=== PATIENT | male | born 1980 | race Caucasian/White ===

== ENCOUNTER 2022-05-04 14:47 | Emergency (ER) | payer BC, SELFPAY ==
[2022-05-04 15:15] VITALS: BP 169/95; PULSE 88; RESP 18; TEMP 36.6; O2SAT 97; BMI 34.0
--- NOTE | 2022-05-04 17:04 | ED_ITS ---
HPI - Abdominal Pain General Time Seen by Provider: 17:04 Date Seen: 05/04/22 Chief Complaint: Abdominal Pain Stated Complaint: Abdominal pain Time Seen by Provider: 05/04/22 17:03 Source: patient, RN notes reviewed and old records reviewed Mode of arrival: ambulatory Limitations: no limitations History of Present Illness HPI narrative: Patient is a very pleasant 41-year-old gentleman previously healthy who comes to the emergency room with concerns regarding hernia. Patient notes that his upper belly button area really hurts today and that he has noticed when he coughs this area bulges. One month ago he had this as well and it was associated with some diffuse abdominal pain that resolved. Today the patient has not noticed any bulging of his abdomen, difficulty with bowel movements or fever or vomiting. Related Data Allergies Allergy/AdvReac Type Severity Reaction Status Date / Time No Known Drug Allergies Allergy Verified 05/04/22 15:14 Review of Systems Narrative Patient denies nausea, vomiting, increasing abdominal distension, inability to pass gas blood in stool or fever. PFSH PFSH Social History Smoking Status: Former smoker Do you use any of these nicotine containing products: None Second hand tobacco smoke exposure: No How often do you have a drink containing alcohol: monthly or less How many standard drinks containing alcohol do you have on a typical day: 1 or 2 How often do you have six or more drinks on one occasion: Never AUDIT-C Alcohol total score: 1 Non-prescribed substance use: denies use service: No Exam Narrative: Exam Narrative: Patient is alert and oriented nontoxic in appearance. Heart with regular rate and rhythm lungs are clear. Patient has palpable abdominal wall defect at the very superior aspect of the umbilicus. Coughing does cause bulging of of the umbilicus in this area. However it is rather diffuse and mild. Bowel sounds are present. Are normal. No other abdominal pain. No rebound. Const: Vital Signs, click to edit/add: Vital Signs - 24 hr 05/04/22 15:15 05/04/22 17:55 Temperature 97.8 F Pulse Rate [Pulse Oximeter] 88 78 Respiratory Rate 18 16 Blood Pressure [Ri ght Upper Arm] 169/95 H 164/109 H Pulse Oximetry 97 99 Oxygen Delivery Me thod Room Air Room Air Course Course Hospital Course: Patient appears to have abdominal defect superior umbilicus area. Will get x- ray to ensure no evidence of obstructive pattern. Vital Signs Vital signs: Initial Vital Signs Temperature 97.8 F 05/04/22 15:15 Temperature Source Temporal Artery Scan 05/04/22 15:15 Pulse Rate 88 05/04/22 15:15 Pulse Rhythm 05/04/22 15:15 Respiratory Rate 18 05/04/22 15:15 Blood Pressure 169/95 H 05/04/22 15:15 Blood Pressure Mean 119 05/04/22 15:15 Blood Pressure Position Sitting 05/04/22 15:15 Pulse Oximetry 97 05/04/22 15:15 Oxygen Delivery Method 05/04/22 15:15 Vital Signs Temperature 97.8 F 05/04/22 15:15 Pulse Rate 88 05/04/22 15:15 Respiratory Rate 18 05/04/22 15:15 Blood Pressure 169/95 H 05/04/22 15:15 Pulse Oximetry 97 05/04/22 15:15 Oxygen Delivery Method 05/04/22 15:15 Temperature 97.8 F 05/04/22 15:15 Pulse Rate 78 05/04/22 17:55 Respiratory Rate 16 05/04/22 17:55 Blood Pressure 164/109 H 05/04/22 17:55 Pulse Oximetry 99 05/04/22 17:55 Oxygen Delivery Method 05/04/22 17:55 MDM - Abdominal Pain MDM Narrative Medical decision making narrative: 1. Umbilical hernia-not incarcerated and reducible 2. Disposition-patient does not appear to be toxic at this time has no evidence of an incarcerated hernia. First noticed this 1 month ago and this was associated with rather diffuse abdominal pain. Today the discomfort is localized. I have instructed him to follow-up with our surgeons and have given the number to the clinic. I have asked that he avoid any significant lifting or activity that increases abdominal pressure. I have spoken to him about the importance of reducing or pushing any hernia back in if it bulges out. He is to return to the emergency room for increasing pain, abdominal distension, vomiting, fever and as needed. Medical Records Attestation: I reviewed the patient's medical records. Imaging Data Abdominal x-ray: Attestation: I have reviewed the pertinent imaging results. My impression: No air-fluid levels or signs of obstruction Discharge Plan Discharge Clinical Impression: Hernia, umbilical Patient Disposition: Home, Self-Care Condition: Unchanged Additional Instructions: At this time you likely have a hernia. There does not appear to be any evidence of twisting or obstruction. However, you will want to get this looked at by a surgeon for repair. Please call [phone] for for an appointment with surgery. In the meantime please avoid lifting excessively heavy objects. Seek medical attention for hernia that does not reduce or pushed back into her abdomen, vomiting, increasing abdominal pain and inability to pass gas or fever. Follow Up/Referrals: Tristin Marquez PA-C [Primary Care Provider] - Stand Alone Forms: MyHealth Info Instructions
--- NOTE | 2022-05-04 17:13 | CRLHL7_ITS ---
For Patients: As a result of the Century Cures Act, medical imaging exams and procedure reports are released immediately into your electronic medical record. You may view this report before your referring provider. If you have questions, please contact your health care provider. In indication: Umbilical hernia Technique: Supine view abdomen was obtained. Comparison: None available. Findings: There is a non-obstructive, non-specific bowel gas pattern. There is a moderate amount of stool seen proximal colon. There is no pathologic calculus. There is no intraabdominal free air. The visualized osseus structures are grossly intact. Impression: Moderate stool seen throughout the colon. No evidence of pathologic calculus. Dictated by Braeden Galvez MD @ 05/04/2022 6:39:02 PM (Electronically Signed)
--- OUTSIDE RECORDS SUMMARY | 2022-05-04 17:46 | XMS_ITS | Encounter Summary ---
:1980 Author Organization [place] Address [address] [place] [address] Care Team Providers Name Role Phone Unavailable Primary Care Provider Unavailable Encounter Details Date Type Department Care Team Description 06/03/2021 Travel Social History Tobacco Use Types Packs/Day Years Used Date Smoking Tobacco: Former Smokeless Tobacco: Former Alcohol Use Standard Drinks/Week Comments Yes 0 (1 standard drink = 0.6 oz pure alcoho l) Sex Assigned at Date Recorded Not on file COVID-19 Exposure Response Date Recorded In the last month, have you been in contact with Yes 06/03/2021 10:58 AM JAMMER OPERATOR someone who was confirmed or suspected to have Coronavirus / COVID-19? documented as of this encounter Plan of Treatment Not on filedocumented as of this encounter Visit Diagnoses Not on filedocumented in this encounter Additional Health Concerns Infection Onset Date Last Indicated Resolved Time Rule Out COVID-19 06/03/2021 06/03/2021 06/04/2021 1:0 4 PM JAMMER OPERATOR documented as of this encounter
--- OUTSIDE RECORDS SUMMARY | 2022-05-04 17:46 | XMS_ITS | Clinical Summary ---
:1980 Author Organization [place] Address [address] [place] [address] Care Team Providers Name Role Phone Unavailable Primary Care Provider Unavailable Allergies No known active allergies Medications No known medications Social History Tobacco Use Types Packs/Day Years Used Date Smoking Tobacco: Former Smokeless Tobacco: Former Alcohol Use Standard Drinks/Week Comments Yes 0 (1 standard drink = 0.6 oz pure alcoho l) Sex Assigned at Date Recorded Not on file Last Filed Vital Signs Vital Sign Reading Time Taken Comments Blood Pressure 130/90 06/03/2021 12:16 PM LIVING COACH Pulse 95 06/03/2021 12:16 PM LIVING COACH Temperature 36.9 ??C (98.4 ??F) 06/03/2021 12:16 PM LIVING COACH Respiratory Rate 16 06/03/2021 12:16 PM LIVING COACH Oxygen Saturation 99% 06/03/2021 12:16 PM LIVING COACH Inhaled Oxygen Concentration - - Weight 102 kg (224 lb 14.4 oz) 06/03/2021 12:16 PM LIVING COACH Height - - Body Mass Index - - Plan of Treatment Health Maintenance Due Date Last Done Comments ADVANCE CARE PLANNING 1980 ANNUAL REVIEW OF HM ORDERS 1980 HEPATITIS B IMMUNIZATION (1 of 3 - 1980 3-dose series) YEARLY PREVENTIVE VISIT 1980 HIV SCREENING 12/18/1994 HEPATITIS C SCREENING 12/18/1997 LIPID 12/18/2014 DTAP/TDAP/TD IMMUNIZATION (2 - Td 06/21/2016 06/21/2006 or Tdap) COVID-19 Vaccine (2 - Booster for 12/16/2020 10/21/2020 Gail series) PHQ-2 (once per calendar year) 2021 INFLUENZA VACCINE (#1) 2022 IPV IMMUNIZATION Aged Out No longer eligi ble based on patient's age to complete this topic MENINGITIS IMMUNIZATION Aged Out No longe r eligible based on patient's age to complete this topic Pneumococcal Vaccine: Pediatrics Aged Out No longer eligible based on (0 to 5 Years) and At-Risk patie nt's age to complete Patients (6 to 64 Years) this to [facility] Insurance Payer Benefit Plan / Subscriber ID Effective Dates Phone Addre ss Type Group BCBS BCBS OF [place] [id number] 2016-Meka [phone] [address] [address] Indemnity t 0 [place] [address]
--- OUTSIDE RECORDS SUMMARY | 2022-05-04 17:46 | XMS_ITS | Encounter Summary ---
:1980 Author Organization [place] Address [facility] [place] [address] Care Team Providers Name Role Phone Unavailable Primary Care Provider Unavailable Reason for Visit Reason Comments Fever Encounter Details Date Type Department Care Team Description 06/03/2021 Office Visit [facility] Quynh Zuniga, Cough in adult (Primary Dx); Urgent Care Ana mccoy MD Exposure to 2019 novel coronavirus [id number] [address] [place], [place] [id number] [phone] Social History Tobacco Use Types Packs/Day Years Used Date Smoking Tobacco: Former Smokeless Tobacco: Former Alcohol Use Standard Drinks/Week Comments Yes 0 (1 standard drink = 0.6 oz pure alcoho l) Sex Assigned at Date Recorded Not on file COVID-19 Exposure Response Date Recorded In the last month, have you been in contact with Yes 06/03/2021 10:58 AM TAR BOILER someone who was confirmed or suspected to have Coronavirus / COVID-19? documented as of this encounter Last Filed Vital Signs Vital Sign Reading Time Taken Comments Blood Pressure 130/90 06/03/2021 12:16 PM TAR BOILER Pulse 95 06/03/2021 12:16 PM TAR BOILER Temperature 36.9 ??C (98.4 ??F) 06/03/2021 12:16 PM TAR BOILER Respiratory Rate 16 06/03/2021 12:16 PM TAR BOILER Oxygen Saturation 99% 06/03/2021 12:16 PM TAR BOILER Inhaled Oxygen Concentration - - Weight 102 kg (224 lb 14.4 oz) 06/03/2021 12:16 PM TAR BOILER Height - - Body Mass Index - - documented in this encounter Patient Instructions Patient InstructionsPiQuynh pimentel MD - 06/03/2021 12:05 PM CST COVID test pending--results should be available tomorrow afternoon, most likely. Stay isolated as much as you can until you know the results are negative. BOILER documented in this encounter Progress Notes Quynh Avina MD - 06/03/2021 12:05 PM CST ASSESSMENT: ICD-10-CM 1. Cough in adult R05.9 Symptomatic COVID-19 Virus (Coronavirus) by PCR Nose 2. Exposure to 2019 novel coronavirus Z20.822 PLAN: Patient Instructions COVID test pending--results should be available tomorrow afternoon, most likely. Stay isolated as much as you can until you know the results are negative. Discussed with patient that in the future if he just wants testing, there are multiple community sites with free testing available and that if he's not concerned about symptoms, these are a better option than urgent care. SUBJECTIVE: Apolinar Carl is a 40 year old male who presents to for a COVID test today. Multiple family members positive, but he has been isolating from them. Tested negative but now having cough. No shortnessof breath. No fever. OBJECTIVE: BP (!) 130/90 (BP Location: Right arm, Patient Position: Chair, Cuff Size: Adult Large) Pulse 95 Temp 98.4 ??F (36.9 ??C) (Oral) Resp 16 Wt 102 kg (224 lb 14.4 oz) SpO2 99% GEN: well-appearing, in NAD Normal lung exam. Normal ENT exam. BOILER documented in this encounter Plan of Treatment Not on filedocumented as of this encounter Procedures Procedure Name Priority Date/Time Associated Diagnosis Comme nts COVID-19 VIRUS Routine 06/03/2021 12:25 PM Cough in adult Resu lts for this (CORONAVIRUS) BY TAR BOILER procedure a re in PCR the results section. documented in this encounter Results (ABNORMAL) Symptomatic COVID-19 Virus (Coronavirus) by PCR Nose (06/03/2021 12:25 PM TAR BOILER) [facility] Method Time Signature SARS CoV2 PCR Positive Negative, 06/04/2021 [facility] (A) Testing sent 1:04 PM TAR BOILER LABORATORY to reference lab. Results will be returned via unsolicited result Comment: POSITIVE: SARS-CoV-2 (COVID-19) RNA detected, presumed positive. Specimen Anatomical Collection Method Collection Time Receive d Time (Source) Location / / Volume Laterality Swab NASAL STRUCTURE / Non-blood 06/03/2021 12:25 2020 Unknown Collection / PM TAR BOILER 12:50 PM TAR BOILER Unknown Narrative [facility] - 06/04/2021 1:[address] Testing was performed using the Aptima SARS-CoV-2 Assay on the [employer] Interactive Instrument System. Additional in formation about this Emergency Use Authorization (EUA) assay can be found via the Lab Guide. This test should be ordered for t he detection of SARS-CoV-2 in individuals who meet SARS-CoV-2 clinical and/or epidemiological criteria. Test performance is unknown in asymptomatic patients. This test is for in vitro diagnostic use unde r the FDA EUA for laboratories certified under CLIA to per form high complexity testing. This test has not been FDA cleared or ap proved. A negative result does not rule out the presence of PCR in hibitors in the specimen or target RNA in concentration below the li melecio of detection for the assay. The possibility of a false negati ve should be considered if the patient's recent exposure or clinica l presentation suggests COVID-19. This test was validated by the [facility] Diagnostic [facility]. This lab oratory is certified under the Clinical Laboratory Improvement Amen dments of 1987 (CLIA-88) as qualified to perform high complexity lab oratory testing. Quynh Avina MD LAB - MICRO GENERAL ORDERABL ES Performing Organization Address City/State/ZIP Code Phon e Number [facility] [place] [phone] [facility], [address] [facility] Infectious [place], [place] [phone] Diseases Diagnostic [id number], [facility] Lab (IDDL) [address] [facility], [address] documented in this encounter Visit Diagnoses Diagnosis Cough in adult - Primary Exposure to 2019 novel coronavirus documented in this encounter Additional Health Concerns Infection Onset Date Last Indicated Resolved Time Rule Out COVID-19 06/03/2021 06/03/2021 06/04/2021 1:0 4 PM TAR BOILER documented as of this encounter
[2022-05-04 17:55] VITALS: BP 164/109; PULSE 78; RESP 16; O2SAT 99
== END 2022-05-04 17:59 | disposition home or self-care (01) ==
PROVIDERS: Emergency Provider Family Medicine
DX: K42.9 Umbilical hernia without obstruction or gangrene (principal)
CPT/HCPCS: 74019; 99283

== ENCOUNTER 2022-06-28 07:59 | Outpatient (CLI) | payer BC, SELFPAY ==
--- OUTSIDE RECORDS SUMMARY | 2022-06-28 08:14 | XMS_ITS | Clinical Summary ---
:1980 Author Organization [place] Address [address] [place] [address] Care Team Providers Name Role Phone Unavailable [...] Comments Blood Pressure 130/90 06/03/2021 12:16 PM PSYCHOMETRICIAN Pulse 95 06/03/2021 12:16 PM PSYCHOMETRICIAN Temperature 36.9 ??C (98.4 ??F) 06/03/2021 12:16 PM PSYCHOMETRICIAN Respiratory Rate 16 06/03/2021 12:16 PM PSYCHOMETRICIAN Oxygen Saturation 99% 06/03/2021 12:16 PM PSYCHOMETRICIAN Inhaled Oxygen Concentration - - Weight 102 kg (224 lb 14.4 oz) 06/03/2021 12:16 PM PSYCHOMETRICIAN Height - - Body Mass Index - [...] Patients (6 to 64 Years) this to [facility] Insurance Payer Benefit Plan / Subscriber ID Effective Dates Phone Addre ss Type Group BCBS BCBS OF [place] [id number] 2016-Meka [phone] [address] [address] Indemnity t 0 [place] [address]
--- OUTSIDE RECORDS SUMMARY | 2022-06-28 08:14 | XMS_ITS | Encounter Summary ---
:1980 Author Organization [place] Address [facility] [place] [address] Care Team Providers Name Role Phone Unavailable Primary Care Provider Unavailable Reason for Visit Reason Comments Fever Encounter Details Date Type Department Care Team Description 06/03/2021 Office Visit [facility] Quynh Zuniga, Cough in adult (Primary Dx); Urgent Care Ana mccoy MD Exposure to 2019 novel coronavirus [id number] [address] [place], [place] [id number] [phone] Social History Tobacco Use Types Packs/Day Years Used Date Smoking Tobacco: Former Smokeless Tobacco: Former Alcohol Use Standard Drinks/Week Comments Yes 0 (1 standard drink = 0.6 oz pure alcoho l) Sex Assigned at Date Recorded Not on file COVID-19 Exposure Response Date Recorded In the last month, have you been in contact with Yes 06/03/2021 10:58 AM SENIOR VICE PRESIDENT someone who was confirmed or suspected to have Coronavirus / COVID-19? documented as of this encounter Last Filed Vital Signs Vital Sign Reading Time Taken Comments Blood Pressure 130/90 06/03/2021 12:16 PM SENIOR VICE PRESIDENT Pulse 95 06/03/2021 12:16 PM SENIOR VICE PRESIDENT Temperature 36.9 ??C (98.4 ??F) 06/03/2021 12:16 PM SENIOR VICE PRESIDENT Respiratory Rate 16 06/03/2021 12:16 PM SENIOR VICE PRESIDENT Oxygen Saturation 99% 06/03/2021 12:16 PM SENIOR VICE PRESIDENT Inhaled Oxygen Concentration - - Weight 102 kg (224 lb 14.4 oz) 06/03/2021 12:16 PM SENIOR VICE PRESIDENT Height - - Body Mass Index - - documented in this encounter Patient Instructions Patient InstructionsPiQuynh pimentel MD - 06/03/2021 12:05 PM CST COVID test pending--results should be available tomorrow afternoon, most likely. Stay isolated as much as you can until you know the results are negative. OR VICE PRESIDENT documented in this encounter Progress Notes Quynh [...] NAD Normal lung exam. Normal ENT exam. OR VICE PRESIDENT documented in this encounter Plan of Treatment Not on filedocumented as of this encounter Procedures Procedure Name Priority Date/Time Associated Diagnosis Comme nts COVID-19 VIRUS Routine 06/03/2021 12:25 PM Cough in adult Resu lts for this (CORONAVIRUS) BY SENIOR VICE PRESIDENT procedure a re in PCR the results section. documented in this encounter Results (ABNORMAL) Symptomatic COVID-19 Virus (Coronavirus) by PCR Nose (06/03/2021 12:25 PM SENIOR VICE PRESIDENT) [facility] Method Time Signature SARS CoV2 PCR Positive Negative, 06/04/2021 [facility] (A) Testing sent 1:04 PM SENIOR VICE PRESIDENT LABORATORY to reference lab. Results will be returned via unsolicited result Comment: POSITIVE: SARS-CoV-2 (COVID-19) RNA detected, presumed positive. Specimen Anatomical Collection Method Collection Time Receive d Time (Source) Location / / Volume Laterality Swab NASAL STRUCTURE / Non-blood 06/03/2021 12:25 2020 Unknown Collection / PM SENIOR VICE PRESIDENT 12:50 PM SENIOR VICE PRESIDENT Unknown Narrative [facility] - 06/04/2021 1:[address] Testing was performed using the Aptima SARS-CoV-2 Assay on the [employer] Instrument System. Additional in formation about this [...] COVID-19. This test was validated by the [facility] Infect[facility]. This lab oratory is certified under the Clinical Laboratory Improvement Amen dments of 1987 (CLIA-88) as qualified to perform high complexity lab oratory testing. Quynh Avina MD LAB - MICRO GENERAL ORDERABL ES Performing Organization Address City/State/ZIP Code Phon e Number [facility] [place] [phone]. [address] [facility], [address] [facility] Infectious [place], [place] [phone] Diseases Diagnostic [phone], [facility] Lab (IDDL) [address] [facility], [address] documented in this encounter Visit Diagnoses Diagnosis Cough in adult - Primary Exposure to 2019 novel coronavirus documented in this encounter Additional Health Concerns Infection Onset Date Last Indicated Resolved Time Rule Out COVID-19 06/03/2021 06/03/2021 06/04/2021 1:0 4 PM SENIOR VICE PRESIDENT documented as of this encounter
--- OUTSIDE RECORDS SUMMARY | 2022-06-28 08:14 | XMS_ITS | Encounter Summary ---
:1980 Author Organization [place] Address [address] [place] [address] Care Team Providers Name Role Phone Unavailable [...] in contact with Yes 06/03/2021 10:58 AM RESEARCH CENTER DIRECTOR someone who was confirmed or suspected to have Coronavirus / COVID-19? documented as of this encounter Plan of Treatment Not on filedocumented as of this encounter Visit Diagnoses Not on filedocumented in this encounter Additional Health Concerns Infection Onset Date Last Indicated Resolved Time Rule Out COVID-19 06/03/2021 06/03/2021 06/04/2021 1:0 4 PM RESEARCH CENTER DIRECTOR documented as of this encounter
[2022-06-28 14:19] LABS: Albumin* 4.8 g/dL (3.3-5.0); Chloride* 105 mmol/L (96-114); Potassium* 4.9 mmol/L (3.6-5.1); Sodium* 143 mmol/L (135-149)
[2022-06-28 14:21] LABS: Cholesterol* 289 mg/dL (90-199); Creatinine* 1.1 mg/dL (0.5-1.5); Estimated Glomerular Filt Rate 86 ml/min
[2022-06-28 14:22] LABS: Alanine Aminotransferase* 40 U/L (4-50); Alkaline Phosphatase* 43 U/L (40-150); Aspartate Amino Transferase* 32 U/L (12-35); Bilirubin Total* 0.5 mg/dL (0.1-1.5); Blood Urea Nitrogen* 20 mg/dL (5-24); Calcium* 9.4 mg/dL (8.4-10.6); Carbon Dioxide* 28 mmol/L (20-32); Glucose* 107 mg/dL (60-115); Total Protein* 7.8 g/dL (6.0-8.3); Triglycerides* 182 mg/dL (40-149)
[2022-06-28 14:23] LABS: HDL Cholesterol* 48 mg/dL (>=40); LDL Cholesterol Calculated 205 mg/dL (<100)
[2022-06-28 15:06] LABS: Hepatitis C Virus Antibody* Negative (Negative)
== END 2022-06-28 08:00 | disposition home or self-care (01) ==
PROVIDERS: Visit Provider Family Medicine
DX: Z00.00 Encounter for general adult medical examination without abnormal findings (principal); I10 Essential (primary) hypertension; Z13.6 Encounter for screening for cardiovascular disorders; Z11.59 Encounter for screening for other viral diseases
CPT/HCPCS: 80053; 80061; 86803

== ENCOUNTER 2022-07-12 06:01 | Day surgery (SDC) | payer BC, SELFPAY ==
[2022-07-12] VITALS (13 sets, daily range): BP systolic 122–159; BP diastolic 79–99; PULSE 58–106; RESP 11–18; TEMP 36.3–36.8; O2SAT 93–96; BMI 34.5
--- NOTE | 2022-07-12 06:32 | SUR.PREOP ---
Visualized patient's home covid test, results negative.
[2022-07-12] MEDS: LACTATED RINGERS 1000 ML 1,000 ML 100 ML IV (06:35)
[2022-07-12] MEDS: SODIUM CHLORIDE 0.9 % (FLUSH) 10 ML SYRINGE IVF (06:35)
[2022-07-12] MEDS: CEFAZOLIN 2 GM INJ IVP (07:39)
[2022-07-12] MEDS: BUPIVACAINE 0.25% 30 ML INJECTION (08:15)
--- NOTE | 2022-07-12 08:25 | P.GSOP_ITS ---
Operative Note Date of procedure: 07/12/22 Type of Procedure: 1. Open umbilical hernia repair with mesh. Procedure Description: After discussing the risks and benefits of the procedure, the patient signed informed consent.? The operative site was marked and the patient was brought to the operating room and placed on the operating table in supine position.? Care was taken to pad the patient's pressure points.?? The patient was then intubated by anesthesia.?? The operative site was then prepped and draped in the usual sterile fashion.? A time-out was then performed. Local anesthetic was injected at the surgical site. A curvilinear skin incision was made with a scalpel just above umbilicus. Subcutaneous tissue was dissected with electrocautery down to the hernia sac and anterior fascia. The hernia sac was dissected off of the anterior fascia and subcutaneous fat around the fascial defect was dissected away from the fascial defect with cautery. Preperitoneal fat was incarcerated through the hernia defect. The fascial defect was ap proximately 1.5 cm. This was mobilized off of the anterior fascia with cautery. During this mobilization, a small opening was seen in the peritoneum. This was closed with a running 3-0 Vicryl suture. I then developed preperitoneal space for mesh insertion circumferentially. A 4.[address] mesh patch was then inserted into preperitoneal space and secured to the fascia using 0-0 Neurolon interrupted stitches. I examined my closure and no defects were identified between the fascia and the mesh. Fascia was re-approximated over the mesh with a running 2-0 Vicryl stitch. Additional local anesthetic was injected into subcutaneous tissues. An umbilicus was tacked down with interrupted 3-0 Vicryl stitches. Subdermal layer was closed with interrupted sutures using 3-0 Vicryl. Skin was closed with 4-0 Monocryl using subcuticular stitch. Steri strips were applied over the incision. I then placed a folded sterile 2 x 2 and 4x4 gauze over the incision and covered it with tape. All counts were correct at the end of the case. Patient tolerated the procedure well and was transferred to PACU without any complications. Findings: Umbilical hernia containing preperitoneal fat, was reduced, and repaired with mesh. Implants: Bard mesh Anesthesia: GETA Surgeon: Sher Fuentes MD Estimated blood loss (mL): 5 Condition: stable Disposition: PACU
--- NOTE | 2022-07-12 08:37 | W.ANESCHARGE ---
Anesthesia Charges Start Date/Time Anesthesia Start Date: 07/12/22 Anesthesia Start Time: 07:27 Stop Date/Time Anesthesia Stop Date: 07/12/22 Anesthesia Stop Time: 08:37 Summary Emergency: No
--- NOTE | 2022-07-12 08:42 | W.ANESCHARGE ---
Anesthesia Charges Start Date/Time Anesthesia Start Date: 07/12/22 Anesthesia Start Time: 07:27 Stop Date/Time Anesthesia Stop Date: 07/12/22 Anesthesia Stop Time: 08:37 Summary Emergency: No
[2022-07-12] MEDS: fentaNYL 100 MCG/2 ML inj 50 MCG IVP (08:59)
--- NOTE | 2022-07-12 09:16 | SUR.PHASEI ---
patient met criteria for discharge per anesthesia
== END 2022-07-12 10:20 | disposition home or self-care (01) ==
PROVIDERS: Visit Provider Surgery
PROC: (CPT 49587; principal; 2022-07-12 07:30)
DX: K42.0 Umbilical hernia with obstruction, without gangrene (principal)
CPT/HCPCS: 49587; 00830; C1781; J0330; J0690; J1100; J1885; J2370; J2405; J2704; J2710; J3010; J3490; J7120

== ENCOUNTER 2023-02-01 10:42 | Outpatient (CLI) | payer BC, SELFPAY ==
[2023-02-01 11:35] VITALS: BP 133/91; PULSE 101
--- NOTE | 2023-02-01 14:41 | PN_ITS ---
PROCEDURE Treadmill Stress Test. INDICATION Chest pain. Resting EKG, sinus rhythm, 83 beats per minute. ?Flattened T waves lead III, flipped T waves V1 without any ST changes. ? Resting blood pressure 149/92. STRESS TEST The patient was exercised on the treadmill following a standard Chidi protocol, did have occasional PVCs in the initial phases of the stress test, escalated to increase of ventricular ectopy until the development of bigeminy starting around 6-1/2 minutes and did not terminate until after exercise completed. ?The bigeminy was gone by 30 seconds postexercise. ?The patient was asymptomatic with this, did not have any chest pain. ?Test was terminated due to patient reaching heart rate and achieving maximal exercise. ?He did feel mildly short of breath but not to be expected at his low level of exercise. ?His exercise equivalent was 12.1 mets. ?Total exercise duration was 10 minutes 33 seconds. ?He had a maximum blood pressure of 200/110 and a rate pressure product of 28,800. ?No ischemic change was noted on this EKG, but the bigeminy was noted. ?Dr. Haile was contacted at [facility]. ?She agreed that this is probably not an ischemic change for the patient, but it is an abnormal stress test. ?She did recommend that the patient get a followup outpatient echo, Zio patch monitoring and a stress echo. ? ASSESSMENT Subjectively negative, objectively positive exercise stress test with hypertensive response and bigeminy with exercise. ? PLAN Have contacted patient's primary care provider, Dr. Sung, and left a message with her office so that she will see this quickly. ?Patient should have an outpatient echo scheduled, obtain Zio patch monitoring, which may have to be done through Cardiology, update with a stress echo as this was abnormal. ?Patient was discharged to home in stable condition. Dictated Date: 02/01/2023 14:41:43 CDT Internal Job ID: [id number]
== END 2023-02-01 10:43 | disposition home or self-care (01) ==
LOC: STRESS 10:43
PROVIDERS: Visit Provider Family Medicine
DX: R07.9 Chest pain, unspecified (principal); I10 Essential (primary) hypertension
CPT/HCPCS: 93016; 93017

== ENCOUNTER 2023-02-22 12:44 | Outpatient (CLI) | payer BC, SELFPAY ==
[2023-02-22] MEDS: PERFLUTREN LIPID MICROSPHERES 2 ML VIAL IV (13:28)
[2023-02-22 13:50] VITALS: BP 148/93; PULSE 94
--- NOTE | 2023-02-22 15:47 | W.PM.STED ---
Stress Test Note Date Date of test: 02/22/23 Providers Primary care provider: Enid Sung Stress test physician: Ronald Martin Stress Test Note Stress test ordered: Stress Echo Indication for test: Chest pain Stress test medicine: Definity Results discussion: This very nice gentleman presents here for the above test, after review of the cardiac stress test medical history form is done. Informed consent is obtained after risks benefits and side effects. Pretest EKG shows normal sinus rhythm, ventricular rate is 93, blood pressure 157/103. 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 They did appear to be rate limited bigeminal rhythm, S1 away once he stops exercising. Any of came down to his normal resting heart rate. He was asymptomatic during this entire time, no significant ST wave changes suggestive of ischemia. He recovered normally in the recovery. Was discharged back to normal baseline Impression: Negative electrographic portion of stress echo, there was inducement of rate limited bigeminal rhythm, Follow up suggested: Await the echo portion read by Cardiology, clinical correlation with this will be needed. Patient's exercise tolerance was excellent.
== END 2023-02-22 12:45 | disposition home or self-care (01) ==
LOC: STRESS 12:44
PROVIDERS: PCP Family Medicine; Visit Provider Family Medicine
DX: R07.9 Chest pain, unspecified (principal)
CPT/HCPCS: 93016; 93325; 93351; Q9957

== ENCOUNTER 2023-05-24 07:43 | Outpatient (CLI) | payer BC, SELFPAY | END 2023-05-24 07:44 | disposition home or self-care (01) | LOC: NFLDREF 05-26 04:20 | PROVIDERS: PCP Family Medicine; Referring Provider Family Medicine | DX: E78.5 Hyperlipidemia, unspecified (principal) | CPT/HCPCS: 80061; 84450; 84460 ==

== ENCOUNTER 2025-04-10 11:55 | Outpatient (CLI) | payer BC, SELFPAY | END 2025-04-10 11:56 | disposition home or self-care (01) | LOC: NFLDREF 04-16 17:02 | PROVIDERS: PCP Family Medicine; Referring Provider Family Medicine; Visit Provider Family Medicine | DX: Z00.00 Encounter for general adult medical examination without abnormal findings (principal); Z13.6 Encounter for screening for cardiovascular disorders | CPT/HCPCS: 80053; 80061 ==

== ENCOUNTER 2025-04-25 16:36 | Outpatient (CLI) | payer BC, SELFPAY ==
--- NOTE | 2025-04-25 16:45 | CRLHL7_ITS ---
For Patients: As a result of the Century Cures Act, medical imaging exams and procedure reports are released immediately into your electronic medical record. You may view this report before your referring provider. If you have questions, please contact your health care provider. INDICATION: Pulmonary nodule. TECHNIQUE: CT chest without contrast. COMPARISON: Chest CT 03/14/2025. FINDINGS: Lungs, pleura, and airways: Stable 4 mm right middle lobe nodule (series 3, image 51), 5 mm right lower lobe nodule (image 54), and 5 mm left lower lobe nodule (image 59). No new or enlarging pulmonary nodules. 2 mm right middle lobe calcified granuloma. No focal consolidation. No pleural effusions, pleural thickening, or pneumothorax. Airways are clear. No endobronchial lesion. No bronchiectasis. Heart and vasculature: Heart size is normal. No pericardial effusion. Thoracic aorta and pulmonary arteries are normal in caliber. Three vessel aortic arch. Minimal coronary atherosclerosis. Lymph nodes/mediastinum: No mediastinal, hilar, or axillary adenopathy. Visualized portions of the thyroid are within normal limits. Soft tissues: Normal. Upper abdomen: No significant findings. Bones: No acute fracture. No worrisome osseous lesion. IMPRESSION: Stable 4-5 mm bilateral pulmonary nodules as above. None of these nodules meet Fleischner criteria for further follow-up. If desired, can get follow-up noncontrast chest CT 1 year from the date of prior examination (03/14/2026) to document 1 year stability. Please note that all CT scans at this facility use dose modulation, iterative reconstruction, and/or weight-based dosing when appropriate to reduce radiation dose to as low as reasonably achievable. Dictated by Darrell Flaherty MD @ 04/26/2025 1:55:04 PM (Electronically Signed)
== END 2025-04-25 16:37 | disposition home or self-care (01) ==
LOC: CT 16:37
PROVIDERS: PCP Family Medicine; Visit Provider Family Medicine
DX: R91.1 Solitary pulmonary nodule (principal); R91.8 Other nonspecific abnormal finding of lung field
CPT/HCPCS: 71250

== ENCOUNTER 2025-07-11 10:39 | Outpatient (CLI) | payer BC, SELFPAY ==
--- NOTE | 2025-07-11 11:45 | P.ANES_ITS ---
Anesthesia Charges Start Date/Time Anesthesia Start Date: 07/11/25 Anesthesia Start Time: 11:13 Stop Date/Time Anesthesia Stop Date: 07/11/25 Anesthesia Stop Time: 11:43 Coding CPT Codes CPT Codes: DARNELL LWR INTST NDSC NOS - [id number] ([id number]) P2 - PATIENT W/MILD SYST DISEASE, QK - MARINE SURVEYOR 2-4 CNCRNT ANES PROC
--- NOTE | 2025-07-11 11:45 | W.ANESCHARGE ---
Anesthesia Charges Start Date/Time Anesthesia Start Date: 07/11/25 Anesthesia Start Time: 11:13 Stop Date/Time Anesthesia Stop Date: 07/11/25 Anesthesia Stop Time: 11:43 Coding CPT Codes CPT Codes: DARNELL LWR INTST NDSC NOS - [id number] ([id number]) P2 - PATIENT W/MILD SYST DISEASE, QK - MARKETING AND PUBLIC RELATIONS MANAGER 2-4 CNCRNT ANES PROC
--- NOTE | 2025-07-11 14:26 | P.ANES_ITS ---
Anesthesia Charges Start Date/Time Anesthesia Start Date: 07/11/25 Anesthesia Start Time: 11:13 Stop Date/Time Anesthesia Stop Date: 07/11/25 Anesthesia Stop Time: 11:43 Coding CPT Codes CPT Codes: DARNELL LWR INTST NDSC NOS - [id number] ([id number]) QK - BAGGAGEMAN 2-4 CNCRNT DARNELL PROC, QX - MANAGER FLEET SVC W/ MD MED DIRECTION, P2 - PATIENT W/MILD SYST DISEASE
--- NOTE | 2025-07-11 14:26 | W.ANESCHARGE ---
Anesthesia Charges Start Date/Time Anesthesia Start Date: 07/11/25 Anesthesia Start Time: 11:13 Stop Date/Time Anesthesia Stop Date: 07/11/25 Anesthesia Stop Time: 11:43 Coding CPT Codes CPT Codes: DARNELL LWR INTST NDSC NOS - [id number] ([id number]) QK - PULMONOLOGIST/INTENSIVIST 2-4 CNCRNT DARNELL PROC, QX - BURRER HAND SVC W/ MD MED DIRECTION, P2 - PATIENT W/MILD SYST DISEASE
== END 2025-07-11 10:40 | disposition home or self-care (01) ==
LOC: OP CLINIC 10:40
PROVIDERS: PCP Family Medicine; Visit Provider Surgery
DX: Z12.11 Encounter for screening for malignant neoplasm of colon (principal); D12.0 Benign neoplasm of cecum; D12.3 Benign neoplasm of transverse colon; D12.8 Benign neoplasm of rectum; Z83.719 Family history of colon polyps, unspecified
CPT/HCPCS: 00811; 00812; 45385